=== PATIENT | female | born 1955 | race Caucasian/White ===

== ENCOUNTER 2016-12-05 02:49 | Emergency (ER) | payer OTHER ==
[~2016-12-05] VITALS: Ht 167.6 cm; Wt 82.2 kg
[~2016-12-05 02:49] MED LIST: ASPIR-LOW81 MG PO; ASPIRIN81 M1 PO; ATORVASTATIN CA10 MG PO; CARTIA; CARTIA XT120 MG PO; DIABETA5 MG PO; EFFEXOR75 MG; EFFEXOR75 MG PO; GABAPENTIN300 MG PO; GLUCOPHAGE1000 MG; GLUCOPHAGE1000 MG PO; GLUCOTROL5 MG; GLYBURIDE5 MG; KEFLEX500 MG PO; LANTUS 3 M100 UNITS1 SC; LISINOPRIL-HCT1 EAC3; LISINOPRIL10 MG PO; LISINOPRIL20 MG PO; PERCOCET 5/31 TABLET PO; RANITIDINE HCL150 MG; RANITIDINE HCL150 MG PO; ZESTORETIC 20-1 EAC1 NG
[2016-12-05] MEDS ORDERED: FLEXERIL10 MG PO (04:06)
[2016-12-05] MEDS ORDERED: NAPROSYN500 MG PO (04:06)
[2016-12-05 04:50] VITALS: BP 141/73
== END 2016-12-05 04:48 | disposition home or self-care (01) ==
LOC: EME 02:49
DX: S46.912A Strain of unspecified muscle, fascia and tendon at shoulder and upper arm level, left arm, initial encounter (principal); W03.XXXA Other fall on same level due to collision with another person, initial encounter; E11.9 Type 2 diabetes mellitus without complications; Z79.4 Long term (current) use of insulin; I10 Essential (primary) hypertension
CPT/HCPCS: 73030; 99281; 99284